=== PATIENT | female | born 1950 | race Caucasian/White ===

== ENCOUNTER 2016-09-15 19:32 | Inpatient (IN) | payer OTHER, SELFPAY ==
[~2016-09-15] VITALS: Ht 149.9 cm; Wt 66.4 kg
[2016-09-15] MEDS ORDERED: METOPROLOL TART50 MG PO (19:46)
[2016-09-15] MEDS ORDERED: HYDROCHLOROTHIA25 MG PO (19:46)
[2016-09-15] MEDS ORDERED: BACTRIM DS TAB1 EACH PO (19:47)
[2016-09-15] MEDS ORDERED: GLIMEPIRIDE4 MG PO (19:48)
[2016-09-15] MEDS ORDERED: LANTUS SOL100 UNIT/1 SUB-Q (19:57)
--- NOTE | 2016-09-15 22:55 | NUR ---
66YR OLD WOMAN ADMITTED FROM ER VIA STRETCHER TO ROOM 114 ACCOMPANIED BY HER . PT IS ALERT, ORIENTED ABLE TO STAND AND TRANSFER SELF TO BED. DENIES NAUSEA AT THIS TIME, RATES PAIN 4/10. ASKED IF SHE CAN HAVE SOMETHING TO EAT. SPOKE WITH DR DUNCAN AND OK TO GIVE HER SANDWICH AND WATER UNTIL MN. ORIENTED TO ROOM AND CALL LIGHT. ORDERS NOTED.
--- NOTE | 2016-09-16 00:02 | NUR ---
ATE 1/2 TURKEY SANDWICH, IS GOING HOME FOR THE EVENING. PT STATES SHE IS COMFORTABLE. LEVAQUIN INFUSING. CALL LIGHT IN EASY REACH.
--- NOTE | 2016-09-16 01:16 | NUR ---
Taking over care at this time. Pt sleeping on her left side, no resp distress.
--- NOTE | 2016-09-16 04:23 | NUR ---
pT HAS SLEPT THIS SHIFT, NO C/O N/V, NO C/O ADVERSE REACTION TO ABX, IVF INFUSING W/O PROBLEMS. PT NPO FOR AM GALLBLADDER SCAN IN AM, NO C/O PAIN OR URINARY PROBLEMS THIS SHIFT. COOPERATIVE. CURRENTLY RESTING, EYES CLOSED, NO DISTRESS.
--- NOTE | 2016-09-16 06:15 | NUR ---
pt awake, lab here drawing blood, coop. BP 175/41, p58, cbg 173, pt is NPO. Will notify this am. Pt had a big late dinner after admission last night. pt denies c/o pain. sitting up in bed watching tv.
--- NOTE | 2016-09-16 07:15 | NUR ---
REPORT RECEIVED FROM BOILERMAKER SHIP RN USING 5 P'S. PT AWAKE AND ALERT IN BED. RATES PAIN 5/10. DECLINES PAIN MEDICATION AT THIS TIME. TO CALL IF WOULD LIKE MED. AT BEDSIDE. IV FLUIDS INFUSING WITHOUT DIFFICULTY. CALL LIGHT IN REACH. PT DENIES NEEDS.
--- NOTE | 2016-09-16 11:32 | NUR ---
Medications reconciled by pharmacist per patient interview and physical medication inventory
--- NOTE | 2016-09-16 12:10 | NUR ---
PT ASSISTED TO ORDER LUNCH. BLOOD SUGAR CHECKED. 80. PT GIVEN APPLE JUICE TO HELP WITH BLOOD SUGAR UNTIL LUNCH ARRIVES. PT ALSO GIVEN APPLE SAUCE AND CRACKERS. AT BEDSIDE. TO CONTINUE TO MONITOR.
--- NOTE | 2016-09-16 14:12 | NUR ---
PT AWAKE AND ALERT IN BED. STATES HAD A GOOD NAP. DENIES PAIN OR NAUSEA AFTER EATING LUNCH. DENIES NEEDS. CALL LIGHT IN REACH.
--- NOTE | 2016-09-16 14:30 | NUR ---
PT AWAKE AND ALERT VISITING WITH FAMILY. INDEPENDANT TO BR. STEADY ON FEET. DENIES PAIN OR NAUSEA. DENIES NEEDS. CALL LIGHT IN REACH.
--- NOTE | 2016-09-16 17:19 | NUR ---
VERIFIED WITH MD TO FINISH SODIUM ACETATE BAG, THEN SWITCH TO NS.
--- NOTE | 2016-09-16 17:27 | NUR ---
PT HAS HAD UNEVENTFUL SHIFT. RECIEVED PAIN MED X 1 IN AM. TOLERATING LOW FAT DIET WITHOUT PAIN OR NAUSEA AT THIS TIME. INDEPENDANT IN ROOM. IVF NEED TO BE CHANGED TO NS AFTER CURRENT BAG FINISHED. BLOOD SUGAR CHECKS. GALLBLADDER US THIS AM. PT CALLS APPROPRIATELY. FAMILY AT BEDSIDE.
--- NOTE | 2016-09-16 20:18 | NUR ---
IN TO CHECK ON PT, PT RESTING WATCHING TV. PT C/O NAUSEA. ZOFRAN 4 MG GIVEN. ASSESSMENT AND VITALS COMPLETED. BP 188/44, EVA MEYERS NOTIFIED PER PROTOCOL. IVF INFUSING. NO FURTHER NEEDS AT THIS TIME. CALL LIGHT WITHIN REACH.
--- NOTE | 2016-09-16 20:43 | NUR ---
VITAL DONE, BP 188/44. DR VELASQUEZ NOTIFIED, MONITOR PATIENT.
--- NOTE | 2016-09-16 22:11 | NUR ---
IN TO START IV ABX, PT RESTING QUIETLY. DENIES PAIN OR NAUSEA. NO FURTHER NEEDS AT THIS TIME. CALL LIGHT WITHIN REACH.
--- NOTE | 2016-09-17 00:38 | NUR ---
IN TO CHECK ON PT, PT APPEARS TO BE SLEEPING. NO APPARENT DISTRESS NOTED. CALL LIGHT WITHIN REACH.
--- NOTE | 2016-09-17 03:19 | NUR ---
IN TO CHECK ON PT, PT AWAKE. C/O ABD PAIN. STATES "IT FEELS LIKE DRY HEAVES". ZOFRAN GIVEN. ASSESSMENT DONE. NO FURTHER NEEDS AT THIS TIME. CALL LIGHT WITHIN REACH.
--- NOTE | 2016-09-17 05:30 | NUR ---
VITALS COMPLETED. BP 195/36. DR VELASQUEZ NOTIFIED. NEW MEDICATION ORDER RECV'D.
--- NOTE | 2016-09-17 05:55 | NUR ---
PT RESTED WELL THROUGH OUT THE SHIFT. PT HAS HAD NAUSEA X2. ZOFRAN GIVEN. PT UP INDEPENDENTLY IN ROOM. PT IS ALERT, ORIENTED AND PLEASENT. USES CALL LIGHT APPROPRIATLY.
--- NOTE | 2016-09-17 07:16 | NUR ---
BEDSIDE REPORT RECEIVED FROM ANGÉLICA, ASSUMING CARE AT THIS TIME. PATIENT RESTING IN BED DENIES NAUSEA AND PAIN. NO REQUEST MADE.
--- NOTE | 2016-09-17 08:37 | NUR ---
SHIFT ASSESSMENT DONE. PATIENT DENIES NAUSEA AND PAIN. TENDERNESS NOTED ON THE RIGHT FLANK AND THE EPIGASTRIC REGION ON PALPATION. IV SITE IS RED AND PAINFUL TO TOUCH. WILL D/C AND START A NEW IV SITE. SHOWER SET UP PER PATIENT REQUEST. PATIENT IS INDEPENDENT IN ROOM. CALL LIGHT AND PERSONAL BELONGINGS WITHIN REACH.
--- NOTE | 2016-09-17 10:31 | NUR ---
COPPERSMITH APPRENTICE IN ROOM WITH PATIENT
[2016-09-17] MEDS ORDERED: NORVASC5 MG PO (11:36)
[2016-09-17] MEDS ORDERED: ZOFRAN ODT4 MG SL (11:38)
[2016-09-17] MEDS ORDERED: HYDROMORPHONE HC2 MG PO (11:39)
--- NOTE | 2016-09-17 13:08 | NUR ---
PT WELCOMED ME INTO HER RM. FIRST ASSISTANT HAD JUST LEFT. I DIDNOT WANT TO STAY LONG, BUT CONNECTED WELL WITH PT. SOME DISCOMFORT, PT REQUESTED PRAYER AND INVITED ME BACK AGAIN. SHE WAS ALERT AND ORIENTED. WILL FOLLOW NEEDED
--- NOTE | 2016-09-18 09:05 | CONS ---
[facility] [address], [place] [address] Signed DATE OF SERVICE: 09/15/2016 REFERRING PHYSICIAN: Dr. Js Butler. CHIEF COMPLAINT: Right upper quadrant abdominal pain. HISTORY OF PRESENT ILLNESS: Lorin is a 66-year-old female, who I know previously from fistulotomy. She since retired from [employer]. She is now remarried and they live together up in [place]. In the last few days, she was thought to be right flank pain, but when she points to it actually right upper quadrant pain just a little bit lateral. She has had some nausea, vomiting, and dehydration. She came to the emergency room for further evaluation. She clearly had acute kidney injury with a BUN elevated over 50 and creatinine over 2. She also had some protein, white blood cells in her urine, but no bacteria and no red blood cells. Liver function tests were all negative. She had a CT scan of the abdomen and pelvis performed that showed a 1.9 cm gallstone in the neck of the gallbladder. Consequently, she was admitted to the Internal Medicine Service with a t h ought was acute kidney injury. After this, she received an ultrasound which confirmed gallstones with a common bile duct is unremarkable and the gallbladder wall is not thickened, but it does demonstrate adenomyomatosis. Consequently, I was asked to see h er as a general surgeon residential direct support professional. In the meantime, she is receiving antibiotics and IV hydration. She is making good urine at this point. PAST MEDICAL HISTORY: Kidney stones 20 years ago, diabetes, hypertension, anal fistula, cervical cancer without radiation therapy. PAST SURGICAL HISTORY: Includes kidney stone removal after a stent, full hysterectomy, x2 and an anal fistulotomy. SOCIAL HISTORY: She smokes a pack cigarettes a day since at age of 18. She does not drink. She is to [place] [phone]. She is retired from [employer]. They prefer the [facility] pharmacy. Dr. Homer Chambers is her primary care provider. FAMILY HISTORY: Mom had some type of lymphosarcoma, at a young age. Dad had of a stroke. REVIEW OF SYSTEMS: Lorin told me, she is doing well. She has not had an [place] or stroke herself. She is happy to be retired. ALLERGIES: None. Electronically Signed By: MILLICENT ODONNELL MD 09/18/16 0905 PATIENT NAME: LORIN CRUZ CONSULTATION DATE OF : 54 PHYSICIAN: MILLICENT ODONNELL MD REPORT #: [id number] REPORT IS CONFIDENTIAL AND NOT TO BE RELEASED WITHOUT AUTHORIZATION [facility] [address], [place] [address] Signed MEDICATIONS: Hydrochlorothiazide, metoprolol, Bactrim, glimepiride, and insulin. PHYSICAL EXAMINATION: VITAL SIGNS: Blood pressure is 154/39, heart rate is 54, respiratory rate 16, temperature is 98.4, she is 98% on room air. She is 4 feet 11 inches and 66 kg. GENERAL: Lorin is a 66-year-old female, who is sitting supine in her hospital bed. Her in the room. She does not appear systemically ill or toxic. She is not jaundiced. She is alert and awake and interactive. She is a good historian. LUNGS: Generally clear to auscultation bilaterally. HEART: Regular rhythm. ABDOMEN: Generally soft and flabby. She is tender to deep palpation in the right upper quadrant just a little bit lateral. LABORATORY DATA: Her white blood cell count was 12, it is now 10; her hemoglobin was 12.1, it is down to 9.6; her mean cell volume is 90; neutrophils of 59. Her BUN is 54, creatinine is 2.37. Her baseline creatinine looks t o be 0.99, glucose 160. Urinalysis showed a protein, white blood cells, but no bacteria and no red blood cells. Total bilirubin 0.2, AST 15, ALT 18, alkaline phosphatase 58. Albumin is 3. RADIOGRAPHIC STUDIES: A CT scan is reviewed and is unremarkable except for the gallstone. The ultrasound of the gallbladder shows a 1.9 cm gallstone in the neck of the gallbladder. It is nonmobile. The common bile duct is unremarkable. The gallbladder wall is not thickened, but it does show adenomyomatosis. ASSESSMENT AND PLAN: Lorin is a 66-year-old female, who presents with cholelithiasis, biliary colic, and followed by nausea, vomiting, dehydration, and acute kidney injury. She also was demonstrating metabolic acidosis from acute kidney injury. At this point, she has been admitted to our Internal Medicine Service. She is under IV fluids and antibiotics at this time. Once her kidney function recover, she will need her gallbladder removed. I have reviewed this with Lorin and her , they have expressed understanding and agrees above plan. MD ARNEL Hamm/Juan A /[id number] cc: Electronically Signed By: MILLICENT ODONNELL MD 09/18/16 0905 PATIENT NAME: LORIN CRUZ CONSULTATION DATE OF : 54 PHYSICIAN: MILLICENT ODONNELL MD REPORT #: [id number] REPORT IS CONFIDENTIAL AND NOT TO BE RELEASED WITHOUT AUTHORIZATION [address] Millicent Lennon MD Electronically Signed By: MILLICENT ODONNELL MD 09/18/16 0905 PATIENT NAME: LORIN CRUZ CONSULTATION DATE OF : 54 PHYSICIAN: MILLICENT ODONNELL MD REPORT #: [id number] REPORT IS CONFIDENTIAL AND NOT TO BE RELEASED WITHOUT AUTHORIZATION
== END 2016-09-17 12:34 | disposition home or self-care (01) | DRG 683 ==
LOC: ED 19:32 → MS 22:26
PROVIDERS: ADMIT Internal Medicine
DX: N17.9 Acute kidney failure, unspecified (principal); E87.2 Acidosis; K80.00 Calculus of gallbladder with acute cholecystitis without obstruction; N39.0 Urinary tract infection, site not specified; I73.9 Peripheral vascular disease, unspecified; I10 Essential (primary) hypertension; E11.9 Type 2 diabetes mellitus without complications; Z79.4 Long term (current) use of insulin; F17.210 Nicotine dependence, cigarettes, uncomplicated; R19.7 Diarrhea, unspecified; E86.0 Dehydration; I35.0 Nonrheumatic aortic (valve) stenosis; R01.1 Cardiac murmur, unspecified; D64.9 Anemia, unspecified
CPT/HCPCS: 36415; 74176; 76705; 80053; 81001; 82570; 82607; 82728; 82746; 83540; 83735; 84300; 84466; 84540; 85025; 85045; 87088; 93306; 96361; 96365; 96375; 99285; 99406; J0696; J1170; J1650; J1885; J2270; J2405; J2550; J7030

== ENCOUNTER 2016-09-23 10:53 | Emergency (ER) | payer OTHER ==
[~2016-09-23] VITALS: Ht 149.9 cm; Wt 65.8 kg
[~2016-09-23 10:53] MED LIST: BACTRIM DS TAB1 EACH PO; GLIMEPIRIDE4 MG PO; HYDROCHLOROTHIA25 MG PO; HYDROMORPHONE HC2 MG PO; LANTUS SOL100 UNIT/1 SUB-Q; METOPROLOL TART50 MG PO; NORVASC5 MG PO; ZOFRAN ODT4 MG SL
== END 2016-09-23 12:48 | disposition home or self-care (01) ==
LOC: ED 10:53
DX: K59.03 Drug induced constipation (principal); T40.2X5A Adverse effect of other opioids, initial encounter; E11.9 Type 2 diabetes mellitus without complications; I10 Essential (primary) hypertension; F17.200 Nicotine dependence, unspecified, uncomplicated; Z87.442 Personal history of urinary calculi; Z90.710 Acquired absence of both cervix and uterus; Z79.899 Other long term (current) drug therapy; Z79.4 Long term (current) use of insulin
CPT/HCPCS: 99282

== ENCOUNTER 2016-09-28 05:35 | Day surgery (SDC) | payer OTHER ==
[~2016-09-28] VITALS: Ht 149.9 cm; Wt 66.0 kg
--- NOTE | 2016-09-28 09:13 | NUR ---
[facility]ER TO PACU AWAKE C/O ABD PAIN 410. DECLINED PAIN MED AT THIS TIME. ICE PACK TO ABD. 904 C/O ABD PAIN 06/27. FENTANYL 25MCG GIVEN IVP.
[2016-09-28] MEDS ORDERED: NORCO 5-325 TA1 EACH PO (09:19)
--- NOTE | 2016-09-28 11:07 | NUR ---
HAS EATEN CRACKER AND JELLO. REQ PAIN MEDS AND GIVEN.
--- NOTE | 2016-09-28 12:41 | NUR ---
pt up to BR to void 200ml, pt eugene activty well, no c/o nausea, feels good. Back to room to get dressed with family.
--- NOTE | 2016-09-29 11:54 | OR ---
[facility] [address] [place], [place] [address] Signed DATE OF SERVICE: 09/28/2016 PREOPERATIVE DIAGNOSES: Chronic cholecystitis. Cholelithiasis. POSTOPERATIVE DIAGNOSES: Chronic cholecystitis. 1-cm gallbladder wall lesion. PROCEDURE: Laparoscopic cholecystectomy without intraoperative cholangiogram. ESTIMATED BLOOD LOSS: None. INDICATIONS: Lorin is a 66-year-old female, who I have met previously. She is now retired and doing well. She was having trouble with right upper quadrant right flank pain. She had nausea, vomiting, dehydration. She went to the emergency room for evaluation. Her renal function was off with elevated BUN and creatinine. Liver function tests were all fine. CT scan of abdomen and pelvis was performed. She had a 1.5 cm gallstone in the neck of the gallbladder. There were no evidence of any kidney stones. She was admitted to the Internal Medicine service and hydrated. Her renal function reversed. An ultrasound of the right upper quadrant confirmed the gallstone was impacted in the neck of the gallbladder. The common bile duct was unremarkable. I have been asked to see her as a general surgeon vp organizational development while she was in the hospital. She explained that her ex- had and her children wanted her at the 4 days from her discharge from the hospital. Consequently, we let her go home from the hospital. We had her plan on doing the gallbladder surgery the following week. I had explained to Lorin the location and function of the gallbladder. We had her come by the office and I gave her a [employer] brochure on the gallbladder as well. She understands laparoscopic versus open cholecystectomy. She understands expected intraoperative and postoperative course. There is risk including, but not limited to gas bloating, crampy abdominal pain, bleeding, perforation requiring surgery, and missed diagnosis, damage to the main bile duct, incisional hernias and other unforeseen comorbidities. She had expressed understanding and wished to proceed. PROCEDURE NOTE: Lorin was taken into our operating room, placed in supine position under general endotracheal tube anesthesia. She was given preoperative antibiotics along with Electronically Signed By: MILLICENT WILEY MD 09/29/16 1154 PATIENT NAME: LORIN CRUZ OPERATIVE REPORT DATE OF : 54 PHYSICIAN: MILLICENT WILEY MD REPORT #: [id number] REPORT IS CONFIDENTIAL AND NOT TO BE RELEASED WITHOUT AUTHORIZATION [address] [address] Signed subcutaneous heparin. SCDs were utilized. She was then prepped and draped in the usual sterile fashion. All trocars were placed in usual positions under direct visualization of camera. She has a previous pe r iumbilical lower midline incision. We had some adherent omentum around the umbilicus obstructing our Jose trocar. We used the angled scope through the subxiphoid port along with the laparoscopic scissors and we carefully took down the adhesions around t h e umbilicus without cautery. After this, we switched back to our 0 degree scope and we elevated the gallbladder in the right upper quadrant. We can see that she has some yellow discoloration to the liver. She had chronic inflammatory changes of the gallbladder with the surrounding fat adherent to the gallbladder. It took a few minutes to separate the two. She has a large stone in the neck of her gallbladder. I took some additional time then to bluntly dissect out the triangle of Calot. We then made attempts to pass our cholangiocatheter down the cystic duct. Unfortunately, we encountered the valves of Heister. We were unsuccessful in navigating these valves and so we aborted the intraoperative cholangiogram. We then secured the cystic duct stump with a PDS Endoloop and 2 clips were placed on the cystic duct stump to zenaida its location. After this, the gallbladder was carefully removed from the gallbladder fossa with the help of the cautery and placed into an EndoCatch bag. We used our laparoscopic suturing de v ice to pass 0 Vicryl suture on either side of the fascia of the subxiphoid trocar site. This was tied down to close this fascia primarily. After this, the gas was allowed to escape and all the trocars were removed along with the gallbladder. Her gallbladder was opened on the back table by our circulating nurse. She clearly had the large oval shaped stone, probably 1.5 cm in length. Then, she had a 1 cm gallbladder wall lesion, which we marked with a s ilk suture, so we can have our pathologist look at that f or us. After this, we used multiple simple interrupted 0 Vicryl sutures along with a [id number] suture to close the fascia of the supraumbilical trocar site. Local anesthetic was injected into all trocar sites. Each trocar site was irrigated and suctioned out until clear. The skin and dermis of each trocar site was then closed with interrupted 3-0 subcuticular Monocryl sutures. Dry gauze and tape was then applied. After this, Lorin was awakened from her anesthesia, extubated in the OR, and taken to recovery room in stable condition. Millicent Wiley MD AB/Modl /[id number] cc: Millicent Wiley MD Electronically Signed By: MILLICENT WILEY MD 09/29/16 1154 PATIENT NAME: LORIN CRUZ OPERATIVE REPORT DATE OF : 54 PHYSICIAN: MILLICENT WILEY MD REPORT #: [id number] REPORT IS CONFIDENTIAL AND NOT TO BE RELEASED WITHOUT AUTHORIZATION [address] [place], [place] [address] Js Butler Electronically Signed By: MILLICENT WILEY MD 09/29/16 1154 PATIENT NAME: LORIN CRUZ OPERATIVE REPORT DATE OF : 54 PHYSICIAN: MILLICENT WILEY MD REPORT #: [id number] REPORT IS CONFIDENTIAL AND NOT TO BE RELEASED WITHOUT AUTHORIZATION
== END 2016-09-28 12:45 | disposition home or self-care (01) ==
LOC: DS 05:35
PROVIDERS: Colon & Rectal Surgery
PROC: 0FT44ZZ Resection of Gallbladder, Percutaneous Endoscopic Approach (ICD-10-PCS; principal; 2016-09-28 06:45)
DX: K80.10 Calculus of gallbladder with chronic cholecystitis without obstruction (principal); I10 Essential (primary) hypertension; E11.9 Type 2 diabetes mellitus without complications; B19.20 Unspecified viral hepatitis C without hepatic coma; A75.9 Typhus fever, unspecified; F17.210 Nicotine dependence, cigarettes, uncomplicated; Z79.4 Long term (current) use of insulin; Z79.899 Other long term (current) drug therapy; Z90.710 Acquired absence of both cervix and uterus; Z98.890 Other specified postprocedural states; Z88.5 Allergy status to narcotic agent; Z82.3 Family history of stroke
CPT/HCPCS: 00790; J0690; J1644; J2405; J2704; J2765; J3010; J7120

== ENCOUNTER 2017-06-17 22:27 | Observation (INO) | payer OTHER ==
[~2017-06-17] VITALS: Ht 149.9 cm; Wt 65.6 kg
[~2017-06-17 22:27] MED LIST changes: +NORCO 5-325 TA1 EACH PO
[2017-06-17] MEDS ORDERED: NORVASC5 MG PO (22:44)
[2017-06-17] MEDS ORDERED: LOSARTAN POTAS100 MG PO (22:44)
[2017-06-17] MEDS ORDERED: CARVEDILOL25 MG PO (22:45)
[2017-06-17] MEDS ORDERED: SOLIQUA 100 UNIT3 ML SUB-Q (22:53)
[2017-06-18] MEDS ORDERED: NORVASC10 MG PO (11:40)
[2017-06-18] MEDS ORDERED: NICORETTE4 M2 BUCCAL (12:15)
[2017-06-18] MEDS ORDERED: LIPITOR10 MG PO (12:15)
[2017-06-18] MEDS ORDERED: ASPIRIN EC81 MG PO (12:16)
[2017-06-18] MEDS ORDERED: FLUTICASONE PRO16 GM NAS (12:16)
--- NOTE | 2017-06-18 20:53 | EKG ---
[facility] [address] [facility] [place] [address] Signed Normal sinus rhythm Left axis deviation Abnormal ECG When compared with ECG of 20-SEP-2016 11:26, No significant change was found Confirmed by JIMBO DUNCAN MD ([id number]) on 06/18/2017 8:53:49 PM Electronically Signed By: JIMBO DUNCAN MD 06/18/172052 PATIENT NAME: LONI CRUZMonse ESPINOSAE Electrocardiogram DATE OF : 54 PHYSICIAN: JIMBO DUNCAN MD REPORT #: [id number] REPORT IS CONFIDENTIAL AND NOT TO BE RELEASED WITHOUT AUTHORIZATION
== END 2017-06-18 14:15 | disposition home or self-care (01) ==
LOC: ED 22:27 → MS 22:29
PROVIDERS: ADMIT Internal Medicine
DX: G45.9 Transient cerebral ischemic attack, unspecified (principal); R20.2 Paresthesia of skin; G81.91 Hemiplegia, unspecified affecting right dominant side; J01.10 Acute frontal sinusitis, unspecified; J01.00 Acute maxillary sinusitis, unspecified; F17.210 Nicotine dependence, cigarettes, uncomplicated; E11.22 Type 2 diabetes mellitus with diabetic chronic kidney disease; I12.9 Hypertensive chronic kidney disease with stage 1 through stage 4 chronic kidney disease, or unspecified chronic kidney disease; N18.3 Chronic kidney disease, stage 3 (moderate); E11.51 Type 2 diabetes mellitus with diabetic peripheral angiopathy without gangrene; I65.23 Occlusion and stenosis of bilateral carotid arteries; E78.1 Pure hyperglyceridemia; Z88.5 Allergy status to narcotic agent; Z79.4 Long term (current) use of insulin; Z79.899 Other long term (current) drug therapy; Z95.820 Peripheral vascular angioplasty status with implants and grafts
CPT/HCPCS: 70450; 71045; 80053; 80061; 85025; 85610; 85730; 93005; 93010; 99285; 99406; G0378